=== PATIENT | male | born 1995 | race Caucasian/White ===

== ENCOUNTER 2017-12-23 13:09 | Emergency (ER) | payer BC ==
[2017-12-23] MEDS ORDERED: KETOROLAC TROMETHAMINE 60 MG/2 ML SDV IM ONE (14:00)
--- NOTE | 2017-12-23 14:00 | ER Document Report ---
ED GI/ - General Mode of Arrival: Ambulatory Information source: Patient <VERNAJOES - Last Filed: 12/23/17 14:09> <CHUCKY LOVE - Last Filed: 12/27/17 18:29> - General Chief Complaint: Flank Pain Stated Complaint: FLANK PAIN Time Seen by Provider: 12/23/17 13:54 Notes: Patient is a 21-year-old male that presents to the emergency department today with complaints of left-sided flank pain. Patient states his pain began yesterday and it is similar to his kidney stones which he has had in the past. Patient has never had to have lithotripsy. Patient denies testicular pain, penile discharge, falls, trauma, fevers, chills, or hematuria. (JOSE GILLESPIE) - Related Data Allergies/Adverse Reactions: No Known Allergies Allergy (Verified 12/23/17 13:53) Past Medical History - General Information source: Patient - Social History Smoking Status: Never Smoker Cigarette use (# per day): No Chew tobacco use (# tins/day): No Frequency of alcohol use: Occasional Drug Abuse: None Lives with: Family Family History: Reviewed & Not Pertinent Patient has suicidal ideation: No Patient has homicidal ideation: No Renal/ Medical History: Reports: Hx Kidney Stones. Denies: Hx Peritoneal Dialysis - Immunizations Hx Diphtheria, Pertussis, Tetanus Vaccination: No <JOSE GILLESPIE - Last Filed: 12/23/17 14:09> Review of Systems - Review of Systems Constitutional: denies: Chills, Fever EENT: No symptoms reported Cardiovascular: No symptoms reported Respiratory: No symptoms reported Gastrointestinal: No symptoms reported Genitourinary: See HPI, Flank pain - left. denies: Dysuria Male Genitourinary: No symptoms reported Musculoskeletal: No symptoms reported Skin: No symptoms reported Hematologic/Lymphatic: No symptoms reported Neurological/Psychological: No symptoms reported -: Yes All other systems reviewed and negative <JOSE GILLESPIE - Last Filed: 12/23/17 14:09> Physical Exam <JOSE GILLESPIE - Last Filed: 12/23/17 14:09> <CHUCKY LOVE - Last Filed: 12/27/17 18:29> - Vital signs Vitals: Temp Pulse Resp BP Pulse Ox 98.7 F 70 18 127/76 H 98 12/23/17 13:18 12/23/17 13:18 12/23/17 13:18 12/23/17 13:18 12/23/17 13:18 - Notes Notes: Physical Exam: General: Alert, appears well. HEENT: Normocephalic. Atraumatic. PERRL. Extraocular movements intact. Oropharynx clear. Neck: Supple. Non-tender. Respiratory: No respiratory distress. Clear and equal breath sounds bilaterally. Cardiovascular: Regular rate and rhythm. Abdominal: Normal Inspection. Non-tender. No distension. Normal Bowel Sounds. Back: Non-tender. No deformity or step off. Extremities: Moves all four extremities. Upper extremities: Normal inspection. Normal ROM. Lower extremities: Normal inspection. No edema. Normal ROM. Neurological: Normal cognition. AAOx4. Normal speech. Psychological: Normal affect. Normal Mood. Skin: Warm. Dry. Normal color. (JOSE GILLESPIE) Course <JOSE GILLESPIE - Last Filed: 12/23/17 14:09> - Laboratory Result Diagrams: 12/23/17 14:10 <CHUCKY LOVE - Last Filed: 12/27/17 18:29> - Re-evaluation Re-evalutation: 12/23/17 14:51 No overt signs of infection urine provide pain nausea medication with strict return precautions provided to patient in regards to signs and symptoms of infected kidney stone. Dr. Stevens's patient's urologist suggested he follow-up next week for reevaluation or sooner in the emergency department if symptoms are not improving (CHUCKY LOVE) - Vital Signs Vital signs: Temp Pulse Resp BP Pulse Ox 98.3 F 67 18 134/70 H 98 12/23/17 15:04 12/23/17 15:04 12/23/17 13:18 12/23/17 15:04 12/23/17 15:04 - Laboratory Laboratory results interpreted by me: 12/23/17 12/23/17 13:40 14:10 Creatinine 1.28 H Urine Ketones TRACE H Urine Blood SMALL H Ur Leukocyte Esterase TRACE H Discharge <JOSE GILLESPIE - Last Filed: 12/23/17 14:09> <CHUCKY LOVE - Last Filed: 12/27/17 18:29> - Discharge Clinical Impression: Left flank pain Hematuria Qualifiers: Hematuria type: unspecified type Qualified Code(s): R31.9 - Hematuria, unspecified Condition: Good Disposition: HOME, SELF-CARE Instructions: Hematuria ([facility]) Prescriptions: Ondansetron [Zofran Odt 4 mg Tablet] 1 tab PO Q4H PRN #10 tab.rapdis PRN Reason: For Nausea/Vomiting Oxycodone HCl/Acetaminophen [Percocet 5-325 mg Tablet] 1 tab PO ASDIR PRN #10 tablet PRN Reason: Referrals: FARZANEH HOOVER PA-C [NO LOCAL MD] - Follow up as needed Scribe Attestation: 12/27/17 18:29 I personally performed the services described documentation, reviewed and edited the documentation which was dictated to describe my presence, and it accurately records my words and actions. (CHUCKY LOVE) Scribe Documentation - Scribe Written by Scribe:: Ernie Adams, 12/23/2017 1424 acting as scribe for :: Britton <JOSE GILLESPIE - Last Filed: 12/23/17 14:09>
[2017-12-23 14:46] LABS: APPEARANCE,URINE CLEAR; BILIRUBIN,URINE NEGATIVE (NEGATIVE); COLOR,URINE YELLOW; GLUCOSE, URINE NEGATIVE (NEGATIVE); KETONES,URINE TRACE mg/dL (NEGATIVE); LEUKOCYTE ESTERASE,URINE TRACE (NEGATIVE); NITRITE,URINE NEGATIVE (NEGATIVE); PROTEIN,URINE NEGATIVE (NEGATIVE); URINE SPECIFIC GRAVITY 1.014; UROBILINOGEN,URINE NEGATIVE mg/dL (<2.0)
[2017-12-23 14:47] LABS: ANION GAP 13 (5-19); BLOOD UREA NITROGEN 18 mg/dL (7-20); CALCIUM 10.2 mg/dL (8.4-10.2); CARBON DIOXIDE 29 mmol/L (22-30); CHLORIDE 102 mmol/L (98-107); GLUCOSE 89 mg/dL (75-110); POTASSIUM 4.4 mmol/L (3.6-5.0); SODIUM 143.8 mmol/L (137-145)
[2017-12-23 16:08] VITALS: BP 134/70
== END 2017-12-23 16:08 | disposition home or self-care (01) ==
LOC: ER 13:09
DX: R10.9 Unspecified abdominal pain (principal); R31.9 Hematuria, unspecified; Z87.442 Personal history of urinary calculi
CPT/HCPCS: 99284; 96372; 36415; 80048; 81001; J1885